=== PATIENT | male | born 1945 | race Caucasian/White ===

== ENCOUNTER → 2016-05-07 | Outpatient (CLI) | payer MEDICARE, BC | LOC: LAB 11:25 | DX: E11.9 Type 2 diabetes mellitus without complications (principal); E78.2 Mixed hyperlipidemia; I10 Essential (primary) hypertension; Z12.5 Encounter for screening for malignant neoplasm of prostate; Z86.39 Personal history of other endocrine, nutritional and metabolic disease; Z51.81 Encounter for therapeutic drug level monitoring; R55 Syncope and collapse ==

== ENCOUNTER 2016-05-12 10:53 | Outpatient (RCR) | payer MEDICARE, BC | END 2016-07-07 10:30 | disposition home or self-care (01) | LOC: PT 10:53 | DX: M62.81 Muscle weakness (generalized) (principal); M25.511 Pain in right shoulder; R20.0 Anesthesia of skin ==

== ENCOUNTER → 2016-05-14 | Outpatient (CLI) | payer MEDICARE, BC | LOC: LAB 07:17 | DX: E11.9 Type 2 diabetes mellitus without complications (principal); E78.2 Mixed hyperlipidemia; Z51.81 Encounter for therapeutic drug level monitoring; Z12.5 Encounter for screening for malignant neoplasm of prostate; Z86.39 Personal history of other endocrine, nutritional and metabolic disease ==

== ENCOUNTER 2016-05-19 13:00 | Outpatient (RCR) | payer MEDICARE, BC | END 2016-08-17 | disposition home or self-care (01) | LOC: OT | DX: E11.42 Type 2 diabetes mellitus with diabetic polyneuropathy (principal); M62.81 Muscle weakness (generalized); Z98.890 Other specified postprocedural states ==

== ENCOUNTER 2016-09-09 10:00 | Outpatient (RCR) | payer MEDICARE, BC | END 2016-09-09 23:00 | disposition home or self-care (01) | LOC: OT 10:00 | DX: M79.641 Pain in right hand (principal); E11.42 Type 2 diabetes mellitus with diabetic polyneuropathy; M62.81 Muscle weakness (generalized) ==

== ENCOUNTER → 2016-10-07 | Outpatient (CLI) | payer MEDICARE, BC | LOC: RAD 08:33 | DX: I63.9 Cerebral infarction, unspecified (principal); I10 Essential (primary) hypertension | CPT/HCPCS: Q9967 ==

== ENCOUNTER → 2016-10-14 | Outpatient (CLI) | payer MEDICARE, BC | LOC: RAD 15:05 | DX: M79.641 Pain in right hand (principal); M43.6 Torticollis; M62.81 Muscle weakness (generalized); I10 Essential (primary) hypertension; I63.9 Cerebral infarction, unspecified ==

== ENCOUNTER → 2016-11-13 | Outpatient (CLI) | payer MEDICARE, BC | LOC: LAB 08:20 | DX: E11.9 Type 2 diabetes mellitus without complications (principal); E78.2 Mixed hyperlipidemia ==

== ENCOUNTER 2016-11-19 13:00 | Outpatient (RCR) | payer MEDICARE, BC | END 2016-12-14 11:11 | disposition home or self-care (01) | LOC: PT 13:00 | DX: M19.90 Unspecified osteoarthritis, unspecified site (principal); M62.81 Muscle weakness (generalized); M43.6 Torticollis ==

== ENCOUNTER → 2017-04-28 | Outpatient (CLI) | payer MEDICARE, BC | LOC: LAB 10:14 | DX: E11.9 Type 2 diabetes mellitus without complications (principal); E78.2 Mixed hyperlipidemia ==

== ENCOUNTER → 2017-11-09 | Outpatient (CLI) | payer MEDICARE, BC | LOC: LAB 12:00 | DX: E11.9 Type 2 diabetes mellitus without complications (principal); E78.5 Hyperlipidemia, unspecified ==

== ENCOUNTER → 2018-03-15 | Outpatient (CLI) | payer MEDICARE, BC | LOC: LAB 14:33 | PROVIDERS: Family Medicine | DX: Z00.00 Encounter for general adult medical examination without abnormal findings (principal); H92.11 Otorrhea, right ear; E11.9 Type 2 diabetes mellitus without complications; F32.9 Major depressive disorder, single episode, unspecified; Z86.39 Personal history of other endocrine, nutritional and metabolic disease ==

== ENCOUNTER 2018-04-19 09:35 | Outpatient (RCR) | payer MEDICARE, BC | END 2018-05-11 13:31 | LOC: OPPGERO 09:35 | DX: F33.2 Major depressive disorder, recurrent severe without psychotic features (principal); I10 Essential (primary) hypertension; E11.9 Type 2 diabetes mellitus without complications; M19.90 Unspecified osteoarthritis, unspecified site; Z86.73 Personal history of transient ischemic attack (TIA), and cerebral infarction without residual deficits; Z79.01 Long term (current) use of anticoagulants; Z79.82 Long term (current) use of aspirin; Z79.4 Long term (current) use of insulin; Z79.899 Other long term (current) drug therapy ==

== ENCOUNTER 2018-05-12 08:50 | Outpatient (RCR) | payer MEDICARE, BC | END 2018-06-08 13:44 | LOC: OPPGERO 08:50 | DX: F33.2 Major depressive disorder, recurrent severe without psychotic features (principal); R45.851 Suicidal ideations; E11.9 Type 2 diabetes mellitus without complications; I10 Essential (primary) hypertension; G47.30 Sleep apnea, unspecified; Z86.73 Personal history of transient ischemic attack (TIA), and cerebral infarction without residual deficits; M19.90 Unspecified osteoarthritis, unspecified site; Z79.01 Long term (current) use of anticoagulants; Z63.6 Dependent relative needing care at home; Z79.82 Long term (current) use of aspirin; Z79.4 Long term (current) use of insulin; Z79.899 Other long term (current) drug therapy ==

== ENCOUNTER 2018-06-09 14:07 | Outpatient (RCR) | payer MEDICARE, BC | END 2018-07-07 15:22 | LOC: OPPGERO 14:07 | DX: F33.2 Major depressive disorder, recurrent severe without psychotic features (principal) ==

== ENCOUNTER 2018-07-10 09:28 | Outpatient (RCR) | payer MEDICARE, BC | END 2018-08-08 14:38 | LOC: OPPGERO 09:28 | DX: F33.2 Major depressive disorder, recurrent severe without psychotic features (principal); I10 Essential (primary) hypertension; E11.9 Type 2 diabetes mellitus without complications ==

== ENCOUNTER 2018-08-09 08:44 | Outpatient (RCR) | payer MEDICARE, BC | END 2018-09-08 13:34 | LOC: OPPGERO 08:44 | DX: F33.41 Major depressive disorder, recurrent, in partial remission (principal); I10 Essential (primary) hypertension; E11.9 Type 2 diabetes mellitus without complications; Z79.4 Long term (current) use of insulin ==

== ENCOUNTER → 2018-10-25 | Outpatient (CLI) | payer MEDICARE, BC ==
[2018-10-25 08:26] LABS: ALBUMIN 3.8 g/dL (3.4-4.8); POTASSIUM 3.5 mmol/L (3.5-5.1)
[2018-10-25 08:27] LABS: CALCIUM 9.2 mg/dL (8.3-10.5)
[2018-10-25 08:30] LABS: TOTAL BILIRUBIN 0.3 mg/dL (0.2-1.2)
== END ==
LOC: LAB 08:05
PROVIDERS: Family Medicine
DX: E11.9 Type 2 diabetes mellitus without complications (principal); E78.2 Mixed hyperlipidemia; I10 Essential (primary) hypertension; Z86.39 Personal history of other endocrine, nutritional and metabolic disease

== ENCOUNTER 2018-11-29 08:27 | Outpatient (RCR) | payer MEDICARE, BC | END 2018-12-08 13:04 | LOC: OPPGERO 08:27 | DX: F33.1 Major depressive disorder, recurrent, moderate (principal); F43.21 Adjustment disorder with depressed mood; G31.84 Mild cognitive impairment of uncertain or unknown etiology; E11.40 Type 2 diabetes mellitus with diabetic neuropathy, unspecified; E78.2 Mixed hyperlipidemia; Z72.0 Tobacco use; Z79.4 Long term (current) use of insulin; Z79.84 Long term (current) use of oral hypoglycemic drugs; Z79.899 Other long term (current) drug therapy ==

== ENCOUNTER 2018-12-10 16:52 | Outpatient (RCR) | payer MEDICARE, BC | END 2019-01-08 14:04 | disposition still patient (30) | LOC: OPPGERO 16:52 | DX: F32.9 Major depressive disorder, single episode, unspecified (principal); G31.84 Mild cognitive impairment of uncertain or unknown etiology; F43.21 Adjustment disorder with depressed mood; E11.42 Type 2 diabetes mellitus with diabetic polyneuropathy; I10 Essential (primary) hypertension; E78.2 Mixed hyperlipidemia; Z79.4 Long term (current) use of insulin; Z79.84 Long term (current) use of oral hypoglycemic drugs ==

== ENCOUNTER 2019-01-09 11:42 | Outpatient (RCR) | payer MEDICARE, BC | END 2019-02-08 15:29 | disposition still patient (30) | LOC: OPPGERO 11:42 | DX: F33.1 Major depressive disorder, recurrent, moderate (principal); F43.21 Adjustment disorder with depressed mood; G31.84 Mild cognitive impairment of uncertain or unknown etiology; E11.42 Type 2 diabetes mellitus with diabetic polyneuropathy; I10 Essential (primary) hypertension; E78.2 Mixed hyperlipidemia; Z79.4 Long term (current) use of insulin; Z79.84 Long term (current) use of oral hypoglycemic drugs; Z79.1 Long term (current) use of non-steroidal anti-inflammatories (NSAID) ==

== ENCOUNTER → 2019-01-11 | Outpatient (CLI) | payer MEDICARE, BC ==
[2019-01-11 11:08] LABS: CALCIUM 9.5 mg/dL (8.3-10.5)
[2019-01-11 11:17] LABS: URINE APPEARANCE CLEAR; URINE BILIRUBIN NEGATIVE (NEGATIVE); URINE BLOOD TRACE (NEGATIVE); URINE COLOR YELLOW; URINE KETONE NEGATIVE (NEGATIVE); URINE LEUKOCYTE ESTERASE NEGATIVE (NEGATIVE); URINE NITRATE NEGATIVE (NEGATIVE); URINE PROTEIN(semi-quant) 3+ mg/dL (NEGATIVE); URINE UROBILINOGEN NORMAL (NORMAL); URINE WBC 0-1 /hpf (0-3)
[2019-01-11 11:18] LABS: URINE MUCUS PRESENT (NOT PRESENT)
== END ==
LOC: LAB 10:42
PROVIDERS: Family Medicine
DX: E11.9 Type 2 diabetes mellitus without complications (principal); R39.15 Urgency of urination; N50.811 Right testicular pain

== ENCOUNTER 2019-02-09 09:02 | Outpatient (RCR) | payer MEDICARE, BC | END 2019-03-07 14:32 | disposition still patient (30) | LOC: OPPGERO 09:02 | DX: F33.1 Major depressive disorder, recurrent, moderate (principal); F43.21 Adjustment disorder with depressed mood; G31.84 Mild cognitive impairment of uncertain or unknown etiology; F10.94 Alcohol use, unspecified with alcohol-induced mood disorder; E11.40 Type 2 diabetes mellitus with diabetic neuropathy, unspecified; E78.2 Mixed hyperlipidemia; E11.9 Type 2 diabetes mellitus without complications; I10 Essential (primary) hypertension; Z79.1 Long term (current) use of non-steroidal anti-inflammatories (NSAID); Z79.4 Long term (current) use of insulin; Z79.84 Long term (current) use of oral hypoglycemic drugs; Z79.899 Other long term (current) drug therapy; Z98.890 Other specified postprocedural states ==

== ENCOUNTER → 2019-02-22 | Outpatient (CLI) | payer MEDICARE, BC ==
[2019-02-22 10:29] LABS: TOTAL PROTEIN 7.3 g/dL (6.2-8.1)
[2019-02-22 10:31] LABS: TOTAL BILIRUBIN 0.4 mg/dL (0.2-1.2)
[2019-02-22 10:34] LABS: DIRECT BILIRUBIN 0.1 mg/dL (0.0-0.5)
== END ==
LOC: LAB 10:02
PROVIDERS: Family Medicine
DX: E11.9 Type 2 diabetes mellitus without complications (principal); E78.2 Mixed hyperlipidemia; F43.21 Adjustment disorder with depressed mood

== ENCOUNTER → 2019-03-30 | Outpatient (CLI) | payer MEDICARE, BC ==
[2019-03-30 11:14] LABS: CALCIUM 9.5 mg/dL (8.3-10.5)
== END ==
LOC: LAB 10:49
PROVIDERS: Family Medicine
DX: E11.9 Type 2 diabetes mellitus without complications (principal); I10 Essential (primary) hypertension

== ENCOUNTER → 2019-04-18 | Outpatient (CLI) | payer MEDICARE, BC ==
[2019-04-18 13:02] LABS: CALCIUM 9.2 mg/dL (8.3-10.5)
[2019-04-18 13:18] LABS: URINE APPEARANCE CLEAR; URINE BILIRUBIN NEGATIVE (NEGATIVE); URINE BLOOD TRACE (NEGATIVE); URINE COLOR YELLOW; URINE KETONE NEGATIVE (NEGATIVE); URINE LEUKOCYTE ESTERASE NEGATIVE (NEGATIVE); URINE NITRATE NEGATIVE (NEGATIVE); URINE PROTEIN(semi-quant) 2+ mg/dL (NEGATIVE); URINE UROBILINOGEN NORMAL (NORMAL); URINE WBC 0-1 /hpf (0-3)
== END ==
LOC: LAB 12:42
PROVIDERS: Family Medicine
DX: E11.9 Type 2 diabetes mellitus without complications (principal); I10 Essential (primary) hypertension; F43.21 Adjustment disorder with depressed mood; E78.2 Mixed hyperlipidemia; N40.1 Benign prostatic hyperplasia with lower urinary tract symptoms; N39.498 Other specified urinary incontinence

== ENCOUNTER → 2019-05-16 | Outpatient (CLI) | payer MEDICARE, BC | LOC: LAB 09:44 | DX: E11.9 Type 2 diabetes mellitus without complications (principal); I10 Essential (primary) hypertension ==

== ENCOUNTER → 2019-08-15 | Outpatient (CLI) | payer MEDICARE, BC | LOC: LAB 14:15 | DX: E11.9 Type 2 diabetes mellitus without complications (principal) ==

== ENCOUNTER → 2019-11-05 | Outpatient (CLI) | payer MEDICARE, BC | LOC: LAB 10:47 | DX: E11.9 Type 2 diabetes mellitus without complications (principal) ==

== ENCOUNTER → 2019-11-20 | Outpatient (CLI) | payer MEDICARE, BC ==
[2019-11-21 13:29] LABS: HEMATOCRIT 49.3 % (42.0-52.0); HEMOGLOBIN 16.5 g/dL (13.5-18.0); MEAN PLATELET VOLUME 11.3 fl (7.4-10.4); RED BLOOD COUNT 5.2 M/mm3 (4.20-5.60); WHITE BLOOD COUNT 11.5 K/mm3 (4.8-10.8)
[2019-11-21 13:35] LABS: POTASSIUM 4.6 mmol/L (3.5-5.1); SODIUM 134 mmol/L (136-145)
[2019-11-21 13:36] LABS: CALCIUM 9.7 mg/dL (8.3-10.5)
[2019-11-21 13:37] LABS: GLUCOSE 178 mg/dL (75-110)
[2019-11-21 13:38] LABS: CARBON DIOXIDE 22 mmol/L (23-31)
[2019-11-21 13:53] LABS: TROPONIN-I < 0.03 ng/mL (<0.030)
== END ==
LOC: LAB 18:12
PROVIDERS: Internal Medicine Interventional Cardiology
DX: R06.02 Shortness of breath (principal); R07.89 Other chest pain

== ENCOUNTER → 2020-02-13 | Outpatient (CLI) | payer MEDICARE, BC | LOC: LAB 10:03 | DX: E11.9 Type 2 diabetes mellitus without complications (principal) ==

== ENCOUNTER → 2020-03-14 | Outpatient (CLI) | payer MEDICARE, BC | LOC: RAD 09:27 | DX: R07.89 Other chest pain (principal) ==

== ENCOUNTER → 2020-04-30 | Outpatient (CLI) | payer MEDICARE, BC ==
[2020-04-30 09:50] LABS: ALBUMIN 3.9 g/dL (3.4-4.8); POTASSIUM 4.1 mmol/L (3.5-5.1)
[2020-04-30 09:51] LABS: CALCIUM 9.1 mg/dL (8.3-10.5)
[2020-04-30 09:52] LABS: TOTAL PROTEIN 6.8 g/dL (6.2-8.1)
[2020-04-30 09:54] LABS: TOTAL BILIRUBIN 0.5 mg/dL (0.2-1.2)
== END ==
LOC: LAB 09:29
PROVIDERS: Family Medicine
DX: Z12.5 Encounter for screening for malignant neoplasm of prostate (principal); E78.2 Mixed hyperlipidemia; E11.9 Type 2 diabetes mellitus without complications

== ENCOUNTER → 2020-08-13 | Outpatient (CLI) | payer MEDICARE, BC | LOC: LAB 14:40 | DX: E11.42 Type 2 diabetes mellitus with diabetic polyneuropathy (principal); E78.5 Hyperlipidemia, unspecified ==

== ENCOUNTER → 2020-11-19 | Outpatient (CLI) | payer MEDICARE, BC ==
[2020-11-19 10:58] LABS: POTASSIUM 4.5 mmol/L (3.5-5.1)
[2020-11-19 10:59] LABS: CALCIUM 9.8 mg/dL (8.3-10.5)
== END ==
LOC: LAB 10:31
PROVIDERS: Family Medicine
DX: E11.9 Type 2 diabetes mellitus without complications (principal); E11.42 Type 2 diabetes mellitus with diabetic polyneuropathy

== ENCOUNTER → 2021-04-17 | Outpatient (CLI) | payer MEDICARE, BC ==
[2021-04-17 09:20] LABS: POTASSIUM 3.9 mmol/L (3.5-5.1)
[2021-04-17 09:22] LABS: CALCIUM 9.7 mg/dL (8.3-10.5)
[2021-04-17 09:23] LABS: TOTAL PROTEIN 7.8 g/dL (6.2-8.1)
[2021-04-17 09:25] LABS: TOTAL BILIRUBIN 0.7 mg/dL (0.2-1.2)
== END ==
LOC: LAB 04-16 16:09
PROVIDERS: Internal Medicine
DX: E11.65 Type 2 diabetes mellitus with hyperglycemia (principal)

== ENCOUNTER → 2021-08-27 | Outpatient (CLI) | payer MEDICARE, BC ==
[2021-08-27 09:29] LABS: ALBUMIN 4.1 g/dL (3.4-4.8); POTASSIUM 4.9 mmol/L (3.5-5.1)
[2021-08-27 09:31] LABS: CALCIUM 9.6 mg/dL (8.3-10.5)
[2021-08-27 09:32] LABS: TOTAL PROTEIN 7.4 g/dL (6.2-8.1)
[2021-08-27 09:34] LABS: TOTAL BILIRUBIN 0.6 mg/dL (0.2-1.2)
== END ==
LOC: LAB 08:59
PROVIDERS: Family Medicine
DX: E11.42 Type 2 diabetes mellitus with diabetic polyneuropathy (principal); I10 Essential (primary) hypertension; E78.2 Mixed hyperlipidemia

== ENCOUNTER → 2021-11-16 | Outpatient (CLI) | payer MEDICARE, BC | LOC: LAB 07:49 | DX: Z00.00 Encounter for general adult medical examination without abnormal findings (principal); Z12.5 Encounter for screening for malignant neoplasm of prostate; Z12.11 Encounter for screening for malignant neoplasm of colon; E78.2 Mixed hyperlipidemia; E11.42 Type 2 diabetes mellitus with diabetic polyneuropathy; I63.89 Other cerebral infarction; I10 Essential (primary) hypertension ==

== ENCOUNTER → 2022-01-04 | Day surgery (SDC) | payer MEDICARE, BC | LOC: MSO 11-23 07:32 | DX: Z12.11 Encounter for screening for malignant neoplasm of colon (principal) | CPT/HCPCS: G0121; 00812; J2704; J7120 ==

== ENCOUNTER → 2024-04-09 | Outpatient (CLI) | payer MEDICARE, BC ==
[2024-04-09 08:51] LABS: CALCIUM 9.7 mg/dL (8.3-10.5)
== END ==
LOC: LAB 08:01
PROVIDERS: Family Medicine
DX: I10 Essential (primary) hypertension (principal)

== ENCOUNTER → 2024-04-26 | Outpatient (CLI) | payer MEDICARE, BC | LOC: LAB 12:57 | PROVIDERS: Family Medicine | DX: I10 Essential (primary) hypertension (principal) ==